=== PATIENT | male | born 1950 | race Caucasian/White ===

== ENCOUNTER 2021-09-09 13:10 | Inpatient (IN) | payer OTHER ==
[2021-09-09] MEDS ORDERED: SODIUM CHLORIDE 1,000 ML IV SCH (13:30)
[2021-09-09 14:00] LABS: BASO % 0.7 % (0-2.0); EOS % 1.8 % (0-4.5); HEMATOCRIT 42.4 % (35.4-49); HEMOGLOBIN 14.3 GM/dL (11.7-16.9); LYMPH % 21.6 % (8-40); MCH 30.4 pg (25.7-33.7); MCHC 33.7 g/dl (32.0-35.9); MEAN CELL VOLUME 90.1 fl (80-96); MEAN PLT VOLUME 7.1 fl (7.5-11.1); MONO % 6.9 % (3.8-10.2); PLATELET COUNT 316 10^3/uL (134-434); RDW 14.4 % (11.9-15.9); WHITE BLOOD COUNT 6.3 K/mm3 (4.0-10.0)
[2021-09-09] MEDS ORDERED: APIXABAN 5 MG TABLET PO ONE (14:05)
[2021-09-09 14:06] LABS: INR 1.05 (0.83-1.09); PROTHROMBIN TIME (PATIENT) 11.8 SEC (9.7-13.0)
[2021-09-09 14:09] LABS: ACTIVATED PTT 31.3 SECONDS (25.2-36.5)
[2021-09-09 14:10] LABS: CHLORIDE 108 mmol/L (98-107); SODIUM 143 mmol/L (136-145)
[2021-09-09 14:15] LABS: ALBUMIN 3.5 g/dl (3.4-5.0); ANION GAP 5 MMOL/L (8-16); BLOOD UREA NITROGEN 18.6 mg/dL (7-18); CALCIUM 8.9 mg/dL (8.5-10.1); CO2 30 mmol/L (21-32); GLUCOSE,RANDOM 127 mg/dL (74-106); MAGNESIUM 2.3 mg/dL (1.8-2.4)
[2021-09-09 14:18] LABS: CHOLESTEROL 147 mg/dL (50-200); CREATININE 1.5 mg/dL (0.55-1.3); SGPT/ALT 228 U/L (13-61); TRIGLYCERIDES 108 mg/dL (0-150)
[2021-09-09] MEDS ORDERED: APIXABAN 5 MG TABLET ONE ×2 (14:18→22:36)
[2021-09-09 14:19] LABS: LDL CHOLESTEROL (ONLY SJRH) 79 mg/dL (5-100); SGOT/AST 80 U/L (15-37)
[2021-09-09 14:20] LABS: BILIRUBIN,TOTAL 0.8 mg/dL (0.2-1); TOT PROT 6.6 g/dl (6.4-8.2)
[2021-09-09 14:21] LABS: ALK PHOS 87 U/L (45-117); HDL CHOLESTEROL 48 mg/dL (40-60)
[2021-09-09 15:38] LABS: URINE APPEARANCE CLEAR; URINE BILIRUBIN NEGATIVE (NEGATIVE); URINE COLOR YELLOW; URINE GLUCOSE (UA) NEGATIVE (NEGATIVE); URINE KETONE NEGATIVE (NEGATIVE); URINE LEUK ESTERASE NEGATIVE (NEGATIVE); URINE NITRITE NEGATIVE (NEGATIVE); URINE PROTEIN NEGATIVE (NEGATIVE); URINE UROBILINOGEN 0.2 mg/dL (0.2-1.0)
[2021-09-09] MEDS ORDERED: SODIUM CHLORIDE 0.45% 1,000 ML IV SCH (21:15)
[2021-09-09] MEDS ORDERED: ATORVASTATIN CA 10 MG TABLET (FP) ONE (22:36)
[2021-09-09] MEDS: APIXABAN 5 MG TABLET PO SCH (22:43)
[2021-09-09] MEDS: ATORVASTATIN CA 10 MG TABLET (FP) PO SCH (22:43)
[2021-09-10] MEDS ORDERED: LABETALOL HCL 5 MG/1 ML (100MG/20 ML VIAL) IVPUSH ONE (01:22)
[2021-09-10 08:21] LABS: BASO % 0.4 % (0-2.0); HEMATOCRIT 42.8 % (35.4-49); HEMOGLOBIN 14.5 GM/dL (11.7-16.9); LYMPH % 9.9 % (8-40); MCH 30.5 pg (25.7-33.7); MCHC 33.9 g/dl (32.0-35.9); MEAN CELL VOLUME 89.8 fl (80-96); MEAN PLT VOLUME 7.8 fl (7.5-11.1); MONO % 5.5 % (3.8-10.2); NEUT % 84.2 % (42.8-82.8); PLATELET COUNT 349 10^3/uL (134-434); RBC 4.77 M/mm3 (4.00-5.60); RDW 14.1 % (11.9-15.9); WHITE BLOOD COUNT 12.5 K/mm3 (4.0-10.0)
[2021-09-10 08:33] LABS: ALBUMIN 3.2 g/dl (3.4-5.0); BLOOD UREA NITROGEN 13.4 mg/dL (7-18); CALCIUM 8.3 mg/dL (8.5-10.1); MAGNESIUM 2.2 mg/dL (1.8-2.4)
[2021-09-10 08:36] LABS: CREATININE 1.1 mg/dL (0.55-1.3)
[2021-09-10 08:38] LABS: BILIRUBIN,TOTAL 0.8 mg/dL (0.2-1); TOT PROT 6.2 g/dl (6.4-8.2)
[2021-09-10] MEDS ORDERED: APIXABAN 5 MG TABLET ONE (08:46)
[2021-09-10] MEDS ORDERED: metoPROLOL SUCCINATE 25 MG TAB.SR.24H (FP) ONE (08:47)
[2021-09-10] MEDS: APIXABAN 5 MG TABLET PO SCH ×2 (09:07→22:29)
[2021-09-10] MEDS: metoPROLOL SUCCINATE 25 MG TAB.SR.24H (FP) PO SCH ×2 (09:07→22:29)
[2021-09-10] MEDS ORDERED: metoPROLOL SUCCINATE 25 MG TAB.SR.24H (FP) PO SCH (10:00)
[2021-09-10] MEDS ORDERED: LOSARTAN POTASSIUM 50 MG TABLET PO ONE (10:59)
[2021-09-10] MEDS ORDERED: LOSARTAN POTASSIUM 50 MG TABLET ONE (11:11)
[2021-09-10] MEDS ORDERED: amLODIPine BESYLATE 10 MG TABLET (FP) PO ONE (16:20)
[2021-09-10] MEDS ORDERED: amLODIPine BESYLATE 5 MG TABLET (FP) ONE (16:22)
[2021-09-10 21:58] VITALS: BMI 31.9
[2021-09-10] MEDS: ATORVASTATIN CA 10 MG TABLET (FP) PO SCH (22:29)
[2021-09-11] MEDS ORDERED: metoPROLOL SUCCINATE 25 MG TAB.SR.24H (FP) PO SCH ×2 (07:49→10:00)
[2021-09-11 09:15] VITALS: BP 125/88; PULSE 100; TEMP 98
[2021-09-11] MEDS: APIXABAN 5 MG TABLET PO SCH (09:41)
[2021-09-11] MEDS ORDERED: LOSARTAN POTASSIUM 50 MG TABLET PO SCH (10:00)
[2021-09-11] MEDS ORDERED: PNEUMOC 13-VAL CONJ-DIP CRM/PF 0.5 ML DISP.SYRIN IM ONE (10:00)
[2021-09-11 12:28] LABS: MAGNESIUM 2.4 mg/dL (1.8-2.4)
[2021-09-11 12:31] LABS: PHOSPHOROUS 3.1 mg/dL (2.5-4.9)
== END 2021-09-11 14:18 | disposition home or self-care (01) | DRG 69 ==
LOC: JER 13:10 → JERBED 15:03 → J4W 09-10 20:57
PROVIDERS: ADMIT Internal Medicine; ATTEND Internal Medicine
DX: G45.9 Transient cerebral ischemic attack, unspecified (principal); N17.9 Acute kidney failure, unspecified; I16.1 Hypertensive emergency; I48.92 Unspecified atrial flutter; I10 Essential (primary) hypertension; I48.91 Unspecified atrial fibrillation; E78.5 Hyperlipidemia, unspecified; R51.9 Headache, unspecified; R94.5 Abnormal results of liver function studies; R29.810 Facial weakness; H26.9 Unspecified cataract; R47.81 Slurred speech; R53.1 Weakness; Z96.619 Presence of unspecified artificial shoulder joint
CPT/HCPCS: 36415; 70450-TC; 70544-TC; 71045-TC-FY; 80053; 80061; 80307; 81003; 82550; 82553; 82607; 83036; 83735; 84100; 84439; 84443; 84484; 85025; 85610; 85730; 86038; 86850; 86900; 86901; 90670; 93005; 93010; 93880-TC; 99285-25; C9803; U0003; U0005